=== PATIENT | male | born 1955 | race Caucasian/White ===

== ENCOUNTER 2018-11-11 07:36 | Inpatient (IN) | payer BC ==
[2018-11-11] MEDS: SOD CHLORIDE 0.9% 100 ML, TRANEXAMIC ACID 3,000 MG IRR (06:00)
[~2018-11-11 07:36] MED LIST: LACTATED RINGER'S 1,000 ML IV
[2018-11-11] MEDS: GABAPENTIN 300 MG CAP PO ×2 (08:25→20:24)
[2018-11-11] MEDS: DEXAMETHASONE 1 MG TAB PO (08:25)
[2018-11-11] MEDS ORDERED: LIDOCAINE 2% (SDV) 5 ML INJ (10:22)
[2018-11-11] MEDS ORDERED: PROPOFOL 20 ML (10:22)
[2018-11-11] MEDS ORDERED: morphine SULFATE/PF (10 MG/10 ML) INJ (10:22)
[2018-11-11] MEDS ORDERED: MIDAZOLAM 1 MG/ML 2 ML INJ (10:22)
[2018-11-11] MEDS: TRANEXAMIC ACID 1GM/100ML(PMX) 100 ML (10:25)
[2018-11-11] MEDS ORDERED: CEFAZOLIN 1 GM INJ (10:37)
[2018-11-11] MEDS: CEFAZOLIN 2 GM/50 ML (PMX) 50 ML IVPB (10:41)
[2018-11-11] MEDS: TRANEXAMIC ACID 1GM/100ML(PMX) 100 ML IVPB (10:45)
[2018-11-11] MEDS ORDERED: ONDANSETRON 4 MG INJ (11:02)
[2018-11-11] MEDS ORDERED: FAMOTIDINE 20 MG INJ (11:02)
[2018-11-11] MEDS ORDERED: CA CHLORIDE 10% 10 ML SYRINGE (11:17)
[2018-11-11] MEDS ORDERED: THROMBIN 5000 UNIT (RECOTHROM) VIAL (11:17)
[2018-11-11] MEDS: POLYMYXIN/BACITRACIN 1L IRRIG IRR (11:21)
[2018-11-11] MEDS: BUPIVACAINE 0.5% (SDV) 30 ML, morphine SULFATE (PF) 8 MG, EPINEPHrine 0.3 MG, KETOROLAC... IRR (11:22)
[2018-11-11] MEDS ORDERED: MEPERIDINE 25 MG INJ IV (12:00)
[2018-11-11] MEDS ORDERED: FENTAnyl 50 MCG/ML VIAL IV (12:00)
[2018-11-11] MEDS ORDERED: EPHEDrine 25 MG/5 ML SYG IV (12:00)
[2018-11-11] MEDS ORDERED: DIPHENHYDRAMINE 50 MG INJ IV ×3 (12:00→13:00)
[2018-11-11] MEDS ORDERED: HYDROmorphONE 1 MG/5 ML IV SYRINGE IV ×2 (12:00)
[2018-11-11] MEDS ORDERED: NALBUPHINE HCL (10 MG/1 ML) INJ IV (12:00)
[2018-11-11] MEDS ORDERED: hydrALAzine 20 MG INJ IV (12:00)
[2018-11-11] MEDS ORDERED: PROCHLORPERAZINE 10 MG INJ IV (12:00)
[2018-11-11] MEDS ORDERED: HYDROmorphONE 0.5 MG/0.5 ML SYG IV ×2 (12:00)
[2018-11-11] MEDS ORDERED: LABETALOL HCL 20MG INJ IV (12:00)
[2018-11-11] MEDS ORDERED: NALOXONE (0.4 MG/ML) INJ IV (12:00)
[2018-11-11] MEDS ORDERED: HYDROmorphONE 1 MG/ML SYG IV (13:00)
[2018-11-11] MEDS ORDERED: ONDANSETRON 4 MG INJ IV (13:00)
[2018-11-11] MEDS ORDERED: oxyCODONE 5 MG TAB PO ×2 (13:00)
[2018-11-11] MEDS ORDERED: ZOLPIDEM 5 MG TAB PO (13:00)
[2018-11-11] MEDS ORDERED: MAGNESIUM HYDROXIDE 30ML CUP PO (13:00)
[2018-11-11] MEDS ORDERED: NACL 0.9% 3 ML SYG IV (13:00)
[2018-11-11] MEDS: ACETAMINOPHEN 1000MG/100ML IV 100 ML IVPB ×2 (13:31→20:24)
[2018-11-11] MEDS: LACTATED RINGER'S 1,000 ML IV ×2 (13:32→22:54)
[2018-11-11] MEDS: CEFAZOLIN 1 GM/50 ML (PMX) 50 ML IVPB ×2 (13:32→20:23)
[2018-11-11] MEDS: ONDANSETRON 4 MG INJ IV (13:37)
[2018-11-11] MEDS: FENTAnyl 50 MCG/ML VIAL IV ×2 (13:38→14:26)
[2018-11-11] MEDS: HYDROmorphONE 1 MG/5 ML IV SYRINGE IV ×2 (13:38→14:26)
[2018-11-11] MEDS: INSULIN ASPART [NOVOLOG] 3 ML PEN SC ×2 (17:55→20:29)
[2018-11-11] MEDS ORDERED: GLUCAGON 1 MG INJ IM (18:00)
[2018-11-11] MEDS ORDERED: DEXTROSE 50% 50 ML SYRINGE IV ×2 (18:00)
[2018-11-11] MEDS ORDERED: GLUCOSE GEL 15 GRAM TUBE BUCCAL (18:00)
[2018-11-11] MEDS ORDERED: GLUCOSE GEL 15 GRAM TUBE PO ×2 (18:00)
[2018-11-11] MEDS: metFORMIN 500 MG TAB PO (18:25)
[2018-11-11] MEDS: DEXAMETHASONE 2 MG TAB PO (18:26)
[2018-11-11] MEDS: ATORVASTATIN 10 MG TAB PO (20:24)
[2018-11-11] MEDS: SENNA/DOCUSATE NA (8.6MG/50MG) TAB PO (20:24)
[2018-11-11] MEDS ORDERED: GABAPENTIN 300 MG CAP PO (21:00)
[2018-11-12] MEDS: DEXAMETHASONE 2 MG TAB PO ×3 (00:13→12:35)
[2018-11-12] MEDS: oxyCODONE 5 MG TAB PO ×4 (01:18→16:55)
[2018-11-12] MEDS: ACETAMINOPHEN 1000MG/100ML IV 100 ML IVPB (05:00)
[2018-11-12] MEDS: CEFAZOLIN 1 GM/50 ML (PMX) 50 ML IVPB (05:06)
[2018-11-12] MEDS: LACTATED RINGER'S 1,000 ML IV (08:54)
[2018-11-12] MEDS: GABAPENTIN 300 MG CAP PO ×2 (08:57→12:35)
[2018-11-12] MEDS: SERTRALINE 50 MG TAB PO (08:57)
[2018-11-12] MEDS: SENNA/DOCUSATE NA (8.6MG/50MG) TAB PO (08:57)
[2018-11-12] MEDS: metFORMIN 500 MG TAB PO ×2 (08:58→17:39)
[2018-11-12] MEDS: ASPIRIN (EC) 325 MG TAB PO (08:58)
[2018-11-12] MEDS: AMLODIPINE 5 MG TAB PO (08:59)
[2018-11-12] MEDS ORDERED: INSULIN GLARGINE [LANtus] 3 ML PEN SC ×2 (09:00→09:17)
[2018-11-12] MEDS: INSULIN ASPART [NOVOLOG] 3 ML PEN SC ×3 (09:10→17:38)
[2018-11-12] MEDS: INSULIN GLARGINE [LANTus] (100 UNITS/ML) SYG SC (10:43)
[2018-11-13] MEDS ORDERED: MAGNESIUM HYDROXIDE 30ML CUP PO (21:00)
== END 2018-11-12 18:25 | DRG 470 ==
LOC: REC 07:36 → MS1 17:40
PROC: 0SRB04A Replacement of Left Hip Joint with Ceramic on Polyethylene Synthetic Substitute, Uncemented, Open Approach (ICD-10-PCS; principal; 2018-11-11 09:30)
DX: S72.002A Fracture of unspecified part of neck of left femur, initial encounter for closed fracture (principal); M16.52 Unilateral post-traumatic osteoarthritis, left hip; E11.40 Type 2 diabetes mellitus with diabetic neuropathy, unspecified; I10 Essential (primary) hypertension; X58.XXXA Exposure to other specified factors, initial encounter
CPT/HCPCS: 72170; 73530; 82962; 85025; 86999; 87086; 88307; 88311; 97110; 97116; 97162; 97530